=== PATIENT | female | born 1960 | race Caucasian/White ===

== ENCOUNTER 2016-10-27 15:29 | Emergency (ER) | payer OTHER ==
[~2016-10-27] VITALS: Ht 160 cm; Wt 88.6 kg
[2016-10-27 17:17] LABS: POINT-OF-CARE METER ID UU13113800
[2016-10-27] MEDS ORDERED: LIDOCAINE20 MG/1 M5 MM (17:31)
[2016-10-27] MEDS ORDERED: NYSTATIN15 GM TP (17:40)
[2016-10-27 17:48] VITALS: BP 110/85
== END 2016-10-27 17:50 | disposition home or self-care (01) ==
LOC: EME 15:29
PROVIDERS: Physician Assistant
DX: B37.3 Candidiasis of vulva and vagina (principal); I10 Essential (primary) hypertension; F17.200 Nicotine dependence, unspecified, uncomplicated
CPT/HCPCS: 82948; 99281; 99284; J3010